=== PATIENT | female | born 1990 | race Caucasian/White ===

== ENCOUNTER 2016-11-24 14:14 | Emergency (ER) | payer BC ==
[~2016-11-24] VITALS: Ht 158.8 cm; Wt 56.4 kg
[2016-11-24 14:18] VITALS: Ht 158.8 cm; Wt 56.4 kg
[2016-11-24] MEDS ORDERED: No current meds (14:24)
--- NOTE | 2016-11-24 14:45 | ERPDOC ---
Departure Disposition Decision Date: November 24, 2016 Disposition Decision Time: 15:33 Disposition: 01 DISCHARGED HOME, SELF-CARE Impression Impression Impression: Primary Impression: Sinusitis Qualified Codes: J01.10 - Acute frontal sinusitis, unspecified Severity: Moderate Condition: Stable Seen By: Physician only Patient Instructions: Sinusitis (ED) Problems/Meds/Labs Reviewed?: Yes Medications reviewed and manag: Yes Additional Instructions: Recommend ibuprofen 4 pills (200 mg each) every 8 hours for the next 2 days Recommended AllegraD, as prescribed on the box, ask for it at the pharmacy counter Establish yourself with a primary medical physician for further follow-up Follow up care ordered?: Yes Mental Status: Alert, Oriented Scripts Ondansetron (Zofran Odt) 4 Mg Tab.rapdis 4 MG PO Q8HR Y for PAIN, #21 TAB Orally disintegrating tablet Prov: JOY LARA MD 11/24/16 Amoxicillin/Potassium Clav (Augmentin 875-125 Tablet) 1 Each Tablet 1 TAB PO BID for 7 Days, #14 TAB TAKE WITH MEALS Prov: JOY LARA MD 11/24/16 HPI - Headache General Chief Complaint: Headache Stated Complaint: HEADACHE,NAUSOUS, PAINFUL VISION Time Seen by Provider: 14:45 HPI - Headache Allergies: Coded Allergies: No Known Allergies (Unverified , 11/24/16) Past History Vaccines Hx Influenza Vaccination: Yes (05-11-14) Hx Pneumococcal Vaccination: No Physical Exam General Vitals and Pain First Documented Vital Signs Date Time Temp Pulse Resp B/P Pulse Ox O2 Delivery O2 Flow Rate FiO2 11/24/16 14:18 98.9 98 16 101/61 100 Room Air Weight: Kilograms: 56.400 Height (feet): 5 Height (inches): 2.50 Triage Pain Scale: Progress Results/Orders Orders Procedure Category Date Status Time Ketorolac (Toradol) PHA 11/24/16 Complete 15:00 Ketorolac (Toradol) PHA 11/24/16 Complete 15:00 Ondansetron Odt PHA 11/24/16 Complete (Zofran Odt) 15:00 Medications Current ED Medications Ketorolac Tromethamine (Toradol) 30 mg O ONCE IV ; Start 11/24/16 at 15:00; Stop 11/24/16 at 15:00; Status DC Ketorolac Tromethamine (Toradol) 60 mg O ONCE IM Last administered on 15:09; Start 11/24/16 at 15:00; Stop 11/24/16 at 15:01; Status DC Ondansetron HCl (Zofran Odt) 4 mg O ONCE PO Last administered on 11/24/16 15: 09; Start 11/24/16 at 15:00; Stop 11/24/16 at 15:01; Status DC JOY LARA MD November 24, 2016 14:45
[2016-11-24] MEDS ORDERED: KETOROLAC 30mg/ml INJECTION IV ONE (15:00)
[2016-11-24] MEDS ORDERED: ONDANSETRON ODT 4 MG TAB PO ONE (15:00)
[2016-11-24] MEDS ORDERED: KETOROLAC 60mg/2ml INJECTION IM ONE (15:00)
[2016-11-24] MEDS ORDERED: AMOX-351 PO (15:35)
[2016-11-24] MEDS ORDERED: ONDA4TAB7 PO (15:35)
[2016-11-24 15:50] VITALS: BP 86/52; PULSE 96; RESP 20; TEMP 98.9; O2SAT 100
== END 2016-11-24 15:50 | disposition home or self-care (01) ==
LOC: ED 14:14
DX: J01.10 Acute frontal sinusitis, unspecified (principal)
CPT/HCPCS: 96372; 99283; J1885